=== PATIENT | female | born 1975 | race Caucasian/White ===

== ENCOUNTER → 2018-09-08 | Outpatient (CLI) | payer BC ==
--- NOTE | 2018-09-08 15:05 | RADIOLOGY IMAGING REPORT ---
FACILITY: [facility] PATIENT NAME: RICKY SAPP : [id number] MR: [id number] V: [id number] EXAM DATE: ORDERING PHYSICIAN: FERMIN LUGO TECHNOLOGIST: Louann Watt PROCEDURE:BILATERAL DIGITAL SCREENING MAMMOGRAM WITH CAD ASSISTED INTERPRETATION & 3D TOMOSYNTHESIS COMPARISON:None Baseline Mammogram. INDICATIONS:SCREENING FINDINGS: There is a focal asymmetry in the lateral portion of the Right breast on the Right CC view posterior 1/3 for which Spot compression view is recommended. Also noted is asymmetric tissue in the upper portion of the Right breast on the Right MLO view in the middle and posterior 1/3 for which Spot compression view is recommended. DIAGNOSTIC CATEGORY 0--INCOMPLETE: NEED ADDITIONAL IMAGING EVALUATION. RECOMMENDATIONS: ADDITIONAL MAMMOGRAPHIC VIEWS REQUIRED: RIGHT BREAST. IMPRESSION: BIRADS 0: Incomplete. Additional views of the Right breast recommended. Dictated by: Liane Ag M.D. on 09/08/2018 at 13:43 Transcribed by: BELA on 09/08/2018 at 14:06 Approved by: Liane Ag M.D. on 09/08/2018 at 15:04 [facility]
== END ==
LOC: MAMO 11:15
PROVIDERS: ATTEND Family Medicine
DX: Z12.31 Encounter for screening mammogram for malignant neoplasm of breast (principal); R92.8 Other abnormal and inconclusive findings on diagnostic imaging of breast
CPT/HCPCS: 77063; 77067

== ENCOUNTER → 2018-09-29 | Outpatient (CLI) | payer BC ==
--- NOTE | 2018-09-30 09:45 | RADIOLOGY IMAGING REPORT ---
FACILITY: [facility] [place] PATIENT NAME: RICKY SAPP : [id number] MR: [id number] V: [id number] EXAM DATE: [id number] ORDERING PHYSICIAN: FERMIN LUGO TECHNOLOGIST: Diane Kimbrough RDMS(ABD,OBGYN,BR),RVT PROCEDURE:US RIGHT BREAST COMPARISON:Today's Right mammogram and the Right mammogram from 09/08/18. INDICATIONS:further evaluation FINDINGS: The entire lateral portion of the Right breast was imaged revealing no sonographic abnormality. On Today's diagnostic Right mammogram the area of increased density in the upper portion of the Right breast on the prior Right MLO view did appear compressible. There did appear to be mild asymmetry in the lateral portion of the Right breast which was partially compressible. Sense the area did not persist on the Right MLO view a 6 month follow-up Right mammogram is recommended unless clinical findings warrant more immediate attention. DIAGNOSTIC CATEGORY 3--PROBABLY BENIGN FINDING. RECOMMENDATIONS: SIX MONTH FOLLOW-UP DIAGNOSTIC MAMMOGRAM: RIGHT BREAST. IMPRESSION: BIRADS 3: Probably benign finding. A 6 month follow-up Right mammogram is recommended. Dictated by: Liane Ag M.D. on 09/29/2018 at 16:47 Transcribed by: BELA on 09/30/2018 at 9:04 Approved by: Liane Ag M.D. on 09/30/2018 at 9:43 [facility]
--- NOTE | 2018-09-30 09:45 | RADIOLOGY IMAGING REPORT ---
FACILITY: [facility] - [place] PATIENT NAME: RICKY SAPP : [id number] MR: [id number] V: [id number] EXAM DATE: [id number] ORDERING PHYSICIAN: FERMIN LUGO TECHNOLOGIST: Louann Watt PROCEDURE:RIGHT DIGITAL DIAGNOSTIC MAMMOGRAM WITH CAD ASSISTED INTERPRETATION & 3D TOMOSYNTHESIS COMPARISON:Prior mammogram 09/08/18. INDICATIONS:further evaluation FINDINGS: The patient returned for Spot compression views in the Right CC & MLO projections in addition to a mediolateral view of the Right breast. The focal asymmetry seen in the upper portion of the Right breast on the recent Right MLO view appeared compressible and was also not evident on the mediolateral view. The asymmetry in the lateral portion of the Right breast on the previous mammogram was partially compressible. No sonographic correlate was identified on Today's Ultrasound therefore a 6 month follow-up Right mammogram is recommended unless clinical findings warrant more immediate attention. DIAGNOSTIC CATEGORY 3--PROBABLY BENIGN FINDING. RECOMMENDATIONS: SIX MONTH FOLLOW-UP DIAGNOSTIC MAMMOGRAM: RIGHT BREAST. IMPRESSION: BIRADS 3: Probably benign finding. A 6 month follow-up Right mammogram is recommended as described. Dictated by: Liane Ag M.D. on 09/29/2018 at 16:49 Transcribed by: BELA on 09/30/2018 at 8:58 Approved by: Liane Ag M.D. on 09/30/2018 at 9:43 [facility]
== END ==
LOC: MAMO 01:08
PROVIDERS: ATTEND Family Medicine
DX: R92.8 Other abnormal and inconclusive findings on diagnostic imaging of breast (principal)
CPT/HCPCS: 77061; 77065